=== PATIENT | male | born 1960 | race Caucasian/White ===

== ENCOUNTER 2018-12-26 21:24 | Emergency (ER) | payer OTHER | END 2018-12-27 03:09 | disposition home or self-care (01) | LOC: E/R 21:24 | DX: G51.0 Bell's palsy (principal); I10 Essential (primary) hypertension; E11.9 Type 2 diabetes mellitus without complications; Z79.4 Long term (current) use of insulin | CPT/HCPCS: 70450; 93005; 99284-25 ==